=== PATIENT | female | born 1995 | race Caucasian/White ===

== ENCOUNTER → 2021-11-15 | Outpatient (REF) | payer OTHER ==
[2021-11-15 17:41] LABS: C REACTIVE PROTEIN QUANTITATIV 1.07 MG/DL (0.00-0.30)
== END ==
LOC: M LAB REF 16:45
PROVIDERS: ATTEND Internal Medicine
DX: R19.7 Diarrhea, unspecified (principal)

== ENCOUNTER → 2022-05-23 | Outpatient (REF) | payer OTHER ==
[2022-05-23 17:28] LABS: C REACTIVE PROTEIN QUANTITATIV 1.87 MG/DL (0.00-0.30); RHEUMATOID FACTOR QUANT < 10.0 IU/ML (<15.0)
[2022-05-23 18:05] LABS: VITAMIN B12 LEVEL 417 PG/ML (247-911)
== END ==
LOC: M LAB REF 16:16
PROVIDERS: ATTEND Internal Medicine
DX: M54.16 Radiculopathy, lumbar region (principal); M54.50 Low back pain, unspecified

== ENCOUNTER → 2022-10-15 | Outpatient (CLI) | payer OTHER | LOC: M LAB 05-23 15:32 | PROVIDERS: ATTEND Internal Medicine Gastroenterology | DX: K59.1 Functional diarrhea (principal); R10.84 Generalized abdominal pain; Z15.89 Genetic susceptibility to other disease; R11.2 Nausea with vomiting, unspecified; Z53.9 Procedure and treatment not carried out, unspecified reason ==

== ENCOUNTER → 2022-11-23 | Outpatient (CLI) | payer OTHER | LOC: M LAB 11:08 | PROVIDERS: ATTEND Internal Medicine | DX: Z53.9 Procedure and treatment not carried out, unspecified reason (principal) ==

== ENCOUNTER → 2022-11-23 | Outpatient (CLI) | payer OTHER | LOC: M LAB 11:11 | PROVIDERS: ATTEND Internal Medicine Gastroenterology | DX: K59.1 Functional diarrhea (principal); Z15.89 Genetic susceptibility to other disease; A09 Infectious gastroenteritis and colitis, unspecified ==

== ENCOUNTER → 2022-12-03 | Outpatient (REF) | payer OTHER | LOC: M LAB REF 12:58 | PROVIDERS: ATTEND Internal Medicine Gastroenterology | DX: K59.1 Functional diarrhea (principal); Z15.89 Genetic susceptibility to other disease; A09 Infectious gastroenteritis and colitis, unspecified ==

== ENCOUNTER → 2022-12-03 | Outpatient (REF) | payer OTHER | LOC: M LAB REF 13:05 | PROVIDERS: ATTEND Internal Medicine | DX: R19.7 Diarrhea, unspecified (principal) ==

== ENCOUNTER → 2022-12-12 | Outpatient (REF) | payer OTHER ==
[2022-12-12 18:04] LABS: IMMUNOGLOBULIN A 157.9 MG/DL (40-350); IMMUNOGLOBULIN M 59.1 MG/DL (50-300)
[2022-12-12 18:08] LABS: IMMUNOGLOBULIN E 103.7 IU/ML (0-378)
== END ==
LOC: M LAB REF 16:20
PROVIDERS: ATTEND Internal Medicine
DX: K86.89 Other specified diseases of pancreas (principal)

== ENCOUNTER → 2022-12-26 | Outpatient (CLI) | payer OTHER ==
[2022-12-26 12:56] LABS: SWEAT TEST RT ARM 23.5 MEQ CL/L (0.0-40.0); WEIGHT OF SWEAT LFT ARM 29.7 MG; WEIGHT OF SWEAT RT ARM 29.6 MG
[2022-12-26 12:57] LABS: SWEAT TEST LFT ARM 39.2 MEQ CL/L (0.0-40.0)
== END ==
LOC: M LAB 09:30
PROVIDERS: ATTEND Internal Medicine
DX: K86.89 Other specified diseases of pancreas (principal)

== ENCOUNTER → 2023-01-01 | Outpatient (REF) | payer OTHER | LOC: M LAB REF 10:06 | PROVIDERS: ATTEND Internal Medicine | DX: K86.81 Exocrine pancreatic insufficiency (principal); Z83.6 Family history of other diseases of the respiratory system ==

== ENCOUNTER → 2023-01-04 | Outpatient (CLI) | payer OTHER | LOC: M WHC 09:06 | PROVIDERS: ATTEND Internal Medicine | DX: Z86.03 Personal history of neoplasm of uncertain behavior (principal) ==

== ENCOUNTER → 2023-02-07 | Outpatient (CLI) | payer OTHER ==
[~2023-02-07] MED LIST: ISOVUE-370 76% 100ML VIAL As Ordered ONE
== END ==
LOC: M RAD 08:34
PROVIDERS: ATTEND Internal Medicine Gastroenterology
DX: K59.1 Functional diarrhea (principal); K86.81 Exocrine pancreatic insufficiency; K62.89 Other specified diseases of anus and rectum; R11.0 Nausea; R93.5 Abnormal findings on diagnostic imaging of other abdominal regions, including retroperitoneum
CPT/HCPCS: 74177; Q9967

== ENCOUNTER → 2023-08-22 | Outpatient (REF) | payer OTHER | LOC: M LAB REF 13:07 | PROVIDERS: ATTEND Internal Medicine | DX: R94.6 Abnormal results of thyroid function studies (principal) ==